=== PATIENT | female | born 1955 | race Two or more races ===

== ENCOUNTER 2019-04-11 17:48 | Inpatient (IN) | payer OTHER ==
[~2019-04-11] VITALS: Ht 154.9 cm; Wt 72.1 kg
[~2019-04-11 17:48] MED LIST: ABILIFY2 MG PO; ASPIR 8181 MG PO; ATORVASTATIN CA40 MG PO; BENTYL10 MG/ML; COLACE100 MG PO; GLIMEPIRIDE4 MG PO; HYOSCYAMINE0.125 M1; HYOSCYAMINE0.125 M1 SL; INTESTINEX680 MG PO; LISINOPRIL10 MG PO; METFORMIN HCL1000 M1; METFORMIN HYDRO25 GM; METOPROLOL SUCC25 MG PO; Mylicon 125MG PO; PANTOPRAZOLE SO40 MG; PAROXETINE HCL20 MG PO; PROTONIX20 MG; RESTORIL30 M1 PO; WELLBUTRIN SR150 MG PO; [UNRECOGNIZED DRUG - OTHER]
--- NOTE | 2019-04-11 17:52 | NUR ---
SE RECIBE PACIENTE EN AMBULANCIA REFIERE DOLOR ABDOMINAL SE MELY S/V YSE UBIAC EN AREA DE OBSERVACION
[2019-04-11] MEDS ORDERED: PROTONIX40 M1 (17:56)
[2019-04-11] MEDS ORDERED: PAXIL20 MG (17:56)
[2019-04-11] MEDS ORDERED: JANUMET XR 50-1 EAC1 (18:00)
[2019-04-11] MEDS ORDERED: ZESTRIL10 M1 (18:02)
--- NOTE | 2019-04-11 19:09 | NUR ---
SE ORIENTA AL PACIENTE SOBRE MUESTRAS DE MANDY, MEDICAMENTO, CANALIZACION, CONTRASTE Y CT. PACIENTE REFIERE ENTENDER. SE PROCEEDE A COLECTAR LAS MUESTRAS DE MANDY, BRINDAR EL MEDICAMENTO Y CANALIZAR AL PACIENTE UTILIZANDO MEDIDAS ASEPTICAS. MUESTRAS SON ENVIADAS AL LABORATORIO. SE HACE ENTREGA DEL CONTRASTE Y SE ORIENTA SOBRE EL MISMO. PACIENT EN ESPERA A TERMINAR EL CONTRASTE. SE VERIFICA AREA DE VENOPUNCION Y LA MISMA ESTA EMILY DE EDEMA Y ERITEMA.
--- NOTE | 2019-04-11 20:04 | NUR ---
SE LE ENTREGA ENVASE PARA COLECTAR MUESTRA DE ORINA AL PACIENTE.
--- NOTE | 2019-04-11 23:01 | NUR ---
SE RECIBE PTE ALERTA Y ORIENTADA X 3 EN CAMA CON BARANDAS ELEVADAS POR SEGURIDAD. BUEN PATRON RESPIRATORIO. IV'S 0.9NSS BAJANDO A KVO POR VENOPUNCION EN BRAZO JAIRO. PENDIENTE LECTURA DE CT. SE MANTIENE EN OBSERVACION POR CAMBIOS.
--- NOTE | 2019-04-12 07:10 | NUR ---
SE RECIBE PTE FEMENIA DE 63 YRS ALERTA CONCIENTE Y TRANQUILA EN CAMA CON BARABDAS ELEVADA. PTE REFIERE DOLOR . SE LE CARLIE S/V LA CUAL SE DOCUEMTA. SE MANTIENE PTE CONSULTADA CON EL , TOUS. SE MANTIENE BAJON OBSERVACION POR CAMBIOS.
--- NOTE | 2019-04-12 07:26 | NUR ---
SE LE ADMINSTRA MEDICAMENTO A PTE PARA EL DOLOR INTRAMUSCULAR.EN GLUTEO DERECHO. SE ORIENTA A PTE Y SE OBSERVA POR CAMBIOS.
[2019-04-15] MEDS ORDERED: PANTOPRAZOLE SO40 MG PO (12:34)
[2019-04-15] MEDS ORDERED: INTESTINEX680 M1 PO (12:34)
[2019-04-15] MEDS ORDERED: BACTRIM DS TAB1 EACH PO (12:35)
[2019-04-15] MEDS ORDERED: ULTRACET PO (12:41)
== END 2019-04-15 13:47 | disposition home or self-care (01) | DRG 395 ==
LOC: ER 17:48 → SURH 04-12 12:53 → SEC-K 04-12 12:53 → SURH 04-12 21:58
PROVIDERS: ADMIT Colon & Rectal Surgery
PROC: BW21Y0Z Computerized Tomography (CT Scan) of Abdomen and Pelvis using Other Contrast, Unenhanced and Enhanced (ICD-10-PCS; 2019-04-12)
PROC: BW4GZZZ Ultrasonography of Pelvic Region (ICD-10-PCS; principal; 2019-04-14)
DX: K94.09 Other complications of colostomy (principal); E11.9 Type 2 diabetes mellitus without complications; I10 Essential (primary) hypertension; F32.9 Major depressive disorder, single episode, unspecified; K58.9 Irritable bowel syndrome, unspecified; Y83.2 Surgical operation with anastomosis, bypass or graft as the cause of abnormal reaction of the patient, or of later complication, without mention of misadventure at the time of the procedure

== ENCOUNTER 2019-05-28 19:40 | Inpatient (IN) | payer OTHER ==
[~2019-05-28] VITALS: Ht 162.6 cm; Wt 80.7 kg
[~2019-05-28 19:40] MED LIST changes: +BACTRIM DS TAB1 EACH PO; +INTESTINEX680 M1 PO; +JANUMET XR 50-1 EAC1; +PANTOPRAZOLE SO40 MG PO; +PAXIL20 MG; +PROTONIX40 M1; +ULTRACET PO; +ZESTRIL10 M1
[2019-05-30] MEDS ORDERED: ATORVASTATIN CA40 MG PO (11:48)
[2019-05-30] MEDS ORDERED: ZESTRIL10 M1 PO (11:48)
[2019-05-30] MEDS ORDERED: PAXIL20 MG PO (11:49)
[2019-05-30] MEDS ORDERED: RESTORIL30 M1 PO (11:50)
== END 2019-05-30 13:49 | disposition home or self-care (01) | DRG 440 ==
LOC: ER 19:40 → SURH 05-29 11:56
PROVIDERS: ADMIT Internal Medicine
PROC: BW21ZZZ Computerized Tomography (CT Scan) of Abdomen and Pelvis (ICD-10-PCS; principal; 2019-05-29)
DX: K85.90 Acute pancreatitis without necrosis or infection, unspecified (principal); I10 Essential (primary) hypertension; E11.9 Type 2 diabetes mellitus without complications; N30.20 Other chronic cystitis without hematuria

== ENCOUNTER 2020-01-09 19:36 | Inpatient (IN) | payer OTHER ==
[~2020-01-09] VITALS: Ht 154.9 cm; Wt 72.6 kg
[~2020-01-09 19:36] MED LIST changes: +PAXIL20 MG PO; +ZESTRIL10 M1 PO
[2020-01-09] MEDS ORDERED: SIMVASTATIN5 MG (19:48)
--- NOTE | 2020-01-09 19:48 | NUR ---
SE RECIBE PTE ALERTA YORIENTADA X3 EN AMBULANCIA LA CUAL REFIERE VENIR POR DOLOR EN AREA DE COLOSTOMIA Y AREA ANAL. PTE DE DR. GRIFFIN. SE MIDEN S/V A PTE Y SE COLOCA EN ANA.
--- NOTE | 2020-01-09 20:31 | NUR ---
PT ALERTA Y ORIENTADA X3 ESFERAS SE LE ORIENTA SOBRE TX Y REFIERE ENTEDER. SE MELY MUESTRAS DE MANDY Y VENOPUNCION CON TECNCIAS ASEPTICAS. SE ADMINISTRAN IVLFUIDS ORDENADOS. PT TOLERA TX. PT MANEJADA POR MS X.ADDY.
--- NOTE | 2020-01-10 00:02 | NUR ---
PACIENTE ALERTA Y ORIENTADA EN DB BENNIE ESFERAS, PRESENTA BUEN PATRON RESPIRATORIO Y EMILY DE DOLOR. CANALIZADA EN BRAZO RT, PATENTE Y EMILY DE S/S DE FLEBITIS E INFILTRACION, RECIBIENDO 0.9% NSS A 150 ML/HR. PENDIENTE RE EVALUACION.
--- NOTE | 2020-01-10 07:08 | NUR ---
PET ALERTA Y ORIEJTADA POR BENNIE DIMENSIONES CON BUEN PATRON RESPIRATORIO. SE OBSERVA CANALIZACION PATENTE, EMILY DE EDEMA Y ERITEMA CON IV FLUIDS DE .9NSS @150ML/HR. SE ORIENTA SOBRE PROCEDIMIENTOS, SE MANTIENE EN ANA BAJA, BARANDAS ELEVADAS, FRENOS AJUSTADOS Y TIMBRE ACCSEIBLE.
--- NOTE | 2020-01-10 09:41 | NUR ---
PTE CULMINO TRATAMIENTO, EN ESPERA DE DR. GRIFFIN PARA EVALUACION.
[2020-01-12] MEDS ORDERED: HYOSCYAMINE0.125 M1 SL (15:41)
== END 2020-01-12 17:00 | disposition home or self-care (01) | DRG 392 ==
LOC: ER 19:36 → SURH 01-10 20:57
PROVIDERS: ADMIT Colon & Rectal Surgery; ATTEND Colon & Rectal Surgery
DX: R10.11 Right upper quadrant pain (principal); F32.9 Major depressive disorder, single episode, unspecified; E11.9 Type 2 diabetes mellitus without complications; I10 Essential (primary) hypertension; N28.1 Cyst of kidney, acquired; Z20.828 Contact with and (suspected) exposure to other viral communicable diseases; Z93.3 Colostomy status; N20.0 Calculus of kidney

== ENCOUNTER 2021-02-21 13:03 | Emergency (ER) | payer OTHER ==
[~2021-02-21] VITALS: Ht 154.9 cm; Wt 72.6 kg
[~2021-02-21 13:03] MED LIST changes: +SIMVASTATIN5 MG
[2021-02-21] MEDS ORDERED: LANTUS SOL100 UNIT/1 SQ (13:16)
[2021-02-21] MEDS ORDERED: HUMALOG100 UNIT/2 SQ (13:16)
[2021-02-21] MEDS ORDERED: TEMAZEPAM30 MG PO (13:17)
[2021-02-21] MEDS ORDERED: LEVSIN/SL0.125 MG PO (21:54)
[2021-02-21] MEDS ORDERED: INTESTINEX680 M1 PO (21:54)
[2021-02-21] MEDS ORDERED: DICLOFENAC POTA50 MG PO (21:54)
== END 2021-02-21 23:12 | disposition home or self-care (01) ==
LOC: ER 13:03
DX: K43.5 Parastomal hernia without obstruction or gangrene (principal); R10.31 Right lower quadrant pain; Z93.3 Colostomy status; Z03.818 Encounter for observation for suspected exposure to other biological agents ruled out

== ENCOUNTER 2021-04-03 16:01 | Emergency (ER) | payer OTHER ==
[~2021-04-03] VITALS: Ht 154.9 cm; Wt 72.6 kg
[~2021-04-03 16:01] MED LIST changes: +DICLOFENAC POTA50 MG PO; +HUMALOG100 UNIT/2 SQ; +LANTUS SOL100 UNIT/1 SQ; +LEVSIN/SL0.125 MG PO; +TEMAZEPAM30 MG PO
== END 2021-04-03 22:30 | disposition home or self-care (01) ==
LOC: ER 16:01
DX: R10.84 Generalized abdominal pain (principal); K43.5 Parastomal hernia without obstruction or gangrene; K76.0 Fatty (change of) liver, not elsewhere classified; Z88.0 Allergy status to penicillin; Z88.6 Allergy status to analgesic agent; Z88.1 Allergy status to other antibiotic agents

== ENCOUNTER 2021-10-08 12:06 | Emergency (ER) | payer OTHER ==
[~2021-10-08] VITALS: Ht 154.9 cm; Wt 72.6 kg
== END 2021-10-08 17:01 | disposition home or self-care (01) ==
LOC: ER 12:06
DX: R53.1 Weakness (principal); R42 Dizziness and giddiness; Z88.0 Allergy status to penicillin; Z88.2 Allergy status to sulfonamides; Z91.013 Allergy to seafood; Z88.6 Allergy status to analgesic agent; N39.0 Urinary tract infection, site not specified; E11.9 Type 2 diabetes mellitus without complications; Z79.4 Long term (current) use of insulin; Z86.16 Personal history of COVID-19

== ENCOUNTER 2022-02-27 14:22 | Inpatient (IN) | payer OTHER ==
[~2022-02-27] VITALS: Ht 154.9 cm; Wt 68.0 kg
[~2022-02-27 14:22] MED LIST changes: +CEFDINIR300 MG PO; +LEVSIN0.125 MG PO; +PEPCID AC20 MG PO
--- NOTE | 2022-02-27 14:41 | NUR ---
PTE LLEGA EN AMBULANCIA POR MAREOS ,DEBILOIDAD Y PROBLEMA CON LA COLOCTOMIA SE ACOMODA EN ANA CON BARANDAS ELEVADA.
--- NOTE | 2022-02-27 15:45 | NUR ---
PACIENTE EVALUADA POR EL QUIEN ORDENA TRATAMIENTO. RN TRIMBLE REALIZA MUESTRAS BAJO MEDIDAS ASEPTICAS Y ADMINISTRA MEDICAMENTOS BENJI ORDEN.
--- NOTE | 2022-02-28 03:13 | NUR ---
PACIENTE ALERTA Y ORIENTADA X3. SE ORIENTA SOBRE TX A RECIBIR Y REFIRRIO ENTENDER. SE ADMINISTRA MEDICAMENTO ORDENADO POR MD. IV FLUID PATENTE Y EMILY DE EDEMA Y ERITEMA. SE MANTIENE BAJO OBSERVACION POR CAMBIOS SIGNIFICATIVOS.
[2022-03-09] MEDS ORDERED: ELIQUIS5 MG (09:12)
== END 2022-03-10 14:02 | disposition home or self-care (01) | DRG 683 ==
LOC: ER 14:22 → SURG 02-28 13:53
PROVIDERS: ADMIT Internal Medicine; ATTEND Internal Medicine
PROC: BW21ZZZ Computerized Tomography (CT Scan) of Abdomen and Pelvis (ICD-10-PCS; principal; 2022-02-28)
PROC: BT4JZZZ Ultrasonography of Kidneys and Bladder (ICD-10-PCS; 2022-02-28)
PROC: 02HV33Z Insertion of Infusion Device into Superior Vena Cava, Percutaneous Approach (ICD-10-PCS; 2022-03-01)
PROC: 0DJD8ZZ Inspection of Lower Intestinal Tract, Via Natural or Artificial Opening Endoscopic (ICD-10-PCS; 2022-03-09)
DX: N17.8 Other acute kidney failure (principal); N39.0 Urinary tract infection, site not specified; I10 Essential (primary) hypertension; E11.9 Type 2 diabetes mellitus without complications; Z93.3 Colostomy status; Z79.4 Long term (current) use of insulin; N20.0 Calculus of kidney; N28.1 Cyst of kidney, acquired; K43.5 Parastomal hernia without obstruction or gangrene; Z20.822 Contact with and (suspected) exposure to COVID-19

== ENCOUNTER 2022-05-16 16:18 | Inpatient (IN) | payer OTHER ==
[~2022-05-16] VITALS: Ht 157.5 cm; Wt 71.7 kg
[~2022-05-16 16:18] MED LIST changes: +ELIQUIS5 MG
[2022-05-18] MEDS ORDERED: FENOFIBRATE160 MG (08:23)
[2022-05-18] MEDS ORDERED: [UNRECOGNIZED DRUG - OTHER] (08:23)
[2022-05-18] MEDS ORDERED: ROSUVASTATIN CA10 MG (08:24)
[2022-05-18] MEDS ORDERED: HYDROCHLOROTHIA25 MG (08:24)
[2022-05-18] MEDS ORDERED: LORATADINE10 MG (08:24)
[2022-05-20] MEDS ORDERED: CANASA1000 MG RECTAL (10:19)
== END 2022-05-20 11:49 | disposition home or self-care (01) | DRG 394 ==
LOC: ER 16:18 → SURG 05-17 14:32
PROVIDERS: ADMIT Colon & Rectal Surgery; ATTEND Colon & Rectal Surgery
DX: K62.7 Radiation proctitis (principal); K62.5 Hemorrhage of anus and rectum; E11.9 Type 2 diabetes mellitus without complications; I10 Essential (primary) hypertension; C54.1 Malignant neoplasm of endometrium; Z20.822 Contact with and (suspected) exposure to COVID-19; Z79.4 Long term (current) use of insulin

== ENCOUNTER 2022-12-16 19:00 | Emergency (ER) | payer OTHER ==
[~2022-12-16] VITALS: Ht 154.9 cm; Wt 63.5 kg
[~2022-12-16 19:00] MED LIST changes: +CANASA1000 MG RECTAL; +FENOFIBRATE160 MG; +HYDROCHLOROTHIA25 MG; +LORATADINE10 MG; +ROSUVASTATIN CA10 MG; +[UNRECOGNIZED DRUG - OTHER]
[2022-12-16] MEDS ORDERED: FEMARA2.5 MG PO (19:20)
[2022-12-16] MEDS ORDERED: PLAVIX75 MG PO (19:21)
[2022-12-16] MEDS ORDERED: ABILIFY2 MG PO (19:22)
[2022-12-16] MEDS ORDERED: PAXIL20 MG PO (19:23)
[2022-12-16 19:59] LABS: URINE APPEARANCE Turbid; URINE BILIRRUBIN Negative (NEGATIVE); URINE BLOOD Large; URINE COLOR Yellow; URINE GLUCOSE Negative (NEGATIVE); URINE LEUKOCYTE Large; URINE NITRATE Positive
[2022-12-16 20:03] LABS: URINE EPITHELIAL CELLS 39.4 uL (0.0-38.8); URINE RBC 4983.8 uL (0.0-20.8)
[2022-12-16 20:26] LABS: URINE PROTEIN 300 (NEGATIVE)
[2022-12-16 20:27] LABS: URINE BACTERIA > 9821.5 uL (0.0-1933); URINE WBC > 5548.3 uL (0.0-23.2)
[2022-12-16 21:21] LABS: CALCIUM 8.9 mg/dL (8.5-10.1); CREATININE SERUM 1.73 mg/dL (0.55-1.02); GFR 29.2; POTASSIUM 4.37 mEq/L (3.5-5.1)
[2022-12-17 00:24] LABS: ABG PH 7.356 (7.35-7.45); ABG PO2 94.9 mmHg (80-100); ABG pCO2 33.4 mmHg (35-45); BASE EXCESS -6.1 mmol/l; BICARBONATE 18.3 mmol/l (23-25); SaO2 96.8 %; Tco2 19.3 mmol/l
[2022-12-17 00:35] LABS: HEMATOCRIT 32.3 % (36.0-45.00); HEMOGLOBIN 10.5 g/dL (12.0-15.00); MEAN CORPUSCULAR HEMOGLOBIN 26.8 pg (27.00-32.0); MEAN CORPUSCULAR HGB CONC 32.7 g/dl (32.0-36.0); PLATELET COUNT 197 K/uL (150-450); RED BLOOD COUNT 3.93 M/uL (4.00-6.00); RED CELL DISTRIBUTION WIDTH 16.9 % (11.5-14.5)
[2022-12-17 01:42] LABS: INR 1.03; PARTIAL THROMBOPLASTIN TIME 28.9 SECONDS (22.0-34.0); PROTHROMBIN TIME 10.8 SECONDS (9.0-11.5)
[2022-12-17 06:51] LABS: allen test SATISFACTORY; o2 21 %; puncture site RADIAL LEFT
== END 2022-12-17 09:32 | disposition home or self-care (01) ==
LOC: ER 19:00
PROVIDERS: General Practice
DX: R30.0 Dysuria (principal); N39.0 Urinary tract infection, site not specified; E11.9 Type 2 diabetes mellitus without complications; Z79.4 Long term (current) use of insulin; I10 Essential (primary) hypertension; Z88.6 Allergy status to analgesic agent; Z88.0 Allergy status to penicillin; Z88.8 Allergy status to other drugs, medicaments and biological substances; Z85.42 Personal history of malignant neoplasm of other parts of uterus; Z85.3 Personal history of malignant neoplasm of breast; Z93.3 Colostomy status
CPT/HCPCS: 36415; 74176; 82803; 96365; 96366; 96372; 99285; J2180; J2405; J3490

== ENCOUNTER 2022-12-28 11:53 | Outpatient (CLI) | payer OTHER ==
[~2022-12-28 11:53] MED LIST changes: +FEMARA2.5 MG PO; +PLAVIX75 MG PO
== END 2022-12-28 12:01 | disposition home or self-care (01) ==
LOC: MAMO-SONO 11:53
PROVIDERS: ATTEND Surgery
DX: C50.512 Malignant neoplasm of lower-outer quadrant of left female breast (principal); N60.11 Diffuse cystic mastopathy of right breast; N60.12 Diffuse cystic mastopathy of left breast

== ENCOUNTER 2023-01-06 07:43 | Outpatient (CLI) | payer OTHER | END 2023-01-06 07:45 | disposition home or self-care (01) | LOC: NUCLEAR 07:43 | PROVIDERS: ATTEND Surgery | DX: C50.512 Malignant neoplasm of lower-outer quadrant of left female breast (principal) | CPT/HCPCS: 78815; A9552 ==

== ENCOUNTER 2024-04-20 21:03 | Emergency (ER) | payer OTHER ==
[~2024-04-20] VITALS: Ht 157.5 cm; Wt 63.5 kg
[~2024-04-20 21:03] MED LIST changes: +JANUMET 50-1,01 EACH; +JANUMET 50-1,01 EACH PO; +LETROZOLE2.5 MG PO; +LISINOPRIL20 MG; +LOVAZA1 GM; +MUCINEX DM ER1 EACH PO; +NABUMETONE750 MG PO; +NITROFURANTOIN100 MG PO; +ORPHENADRINE C100 MG PO; +PAROXETINE HCL20 MG; +PROTONIX40 MG; +RESTORIL30 MG PO; +SKELAXIN800 MG PO; +VITAMIN D-32000 UNIT; +ZOCOR40 MG; +ZYRTEC10 MG PO
[2024-04-20] MEDS ORDERED: GABAPENTIN300 M2 PO (21:11)
[2024-04-20] MEDS ORDERED: FAMOTIDINE/PF 20 MG in 0.9 % SODIUM CHLORIDE 8 ML IV PUSH STA (22:12)
[2024-04-20] MEDS ORDERED: 0.9 % SODIUM CHLORIDE 1,000 ML IV SCH (22:15)
[2024-04-20] MEDS ORDERED: HYOSCYAMINE SULFATE 0.125 MG TAB.SUBL SL ONE (22:15)
[2024-04-20] MEDS ORDERED: FAMOTIDINE/PF 20 MG/2 ML VIAL ONE (22:23)
[2024-04-20] MEDS ORDERED: HYOSCYAMINE SULFATE 0.125 MG TAB.SUBL ONE (22:23)
[2024-04-20 23:11] LABS: HEMATOCRIT 33.9 % (36.0-45.00); HEMOGLOBIN 11.6 g/dL (12.0-15.00); MEAN CELL VOLUME 82.7 fL (80.00-100.00); MEAN CORPUSCULAR HEMOGLOBIN 28.3 pg (27.00-32.0); MEAN CORPUSCULAR HGB CONC 34.2 g/dl (32.0-36.0); PLATELET COUNT 210 K/uL (150-450); RED CELL DISTRIBUTION WIDTH 15.6 % (11.5-14.5)
[2024-04-20 23:39] LABS: ALBUMIN 3.5 gm/dL (3.4-5.0); BILIRUBIN TOTAL 0.86 mg/dL (0.3-1.2); CALCIUM 8.7 mg/dL (8.5-10.1); CREATININE SERUM 1.19 mg/dL (0.55-1.02); GFR 44.84; GLOBULINA 4.1 G/DL (2.4-3.5); POTASSIUM 3.55 mEq/L (3.5-5.1); TOTAL PROTEIN 7.6 gm/dL (6.4-8.2)
[2024-04-21 00:33] LABS: URINE APPEARANCE Clear; URINE BILIRRUBIN Negative (NEGATIVE); URINE BLOOD Negative; URINE COLOR Yellow; URINE GLUCOSE Negative (NEGATIVE); URINE KETONE Negative (NEGATIVE); URINE LEUKOCYTE Trace; URINE NITRATE Negative; URINE PROTEIN 30 (NEGATIVE); URINE UROBILINOGEN 0.2 E.U./dl
[2024-04-21 00:48] LABS: URINE BACTERIA 47.7 uL (0.0-1933); URINE CAST 0.58 uL (0.0-1.40); URINE EPITHELIAL CELLS 6.9 uL (0.0-38.8); URINE RBC 2.2 uL (0.0-20.8); URINE WBC 61.3 uL (0.0-23.2)
[2024-04-21] MEDS ORDERED: PROMETHAZINE HCL 25 MG/ML AMPUL IM STA (03:04)
[2024-04-21] MEDS ORDERED: MEPERIDINE HCL/PF 50 MG/ML VIAL IM STA (03:04)
[2024-04-21] MEDS ORDERED: PROMETHAZINE HCL 25 MG/ML AMPUL ONE (03:14)
== END 2024-04-21 08:40 | disposition home or self-care (01) ==
LOC: ER 21:03
PROVIDERS: General Practice
DX: R14.3 Flatulence (principal); R14.1 Gas pain; R14.2 Eructation; R10.13 Epigastric pain; R19.7 Diarrhea, unspecified; R10.9 Unspecified abdominal pain; I10 Essential (primary) hypertension; E11.9 Type 2 diabetes mellitus without complications; Z79.84 Long term (current) use of oral hypoglycemic drugs; Z91.013 Allergy to seafood; Z91.041 Radiographic dye allergy status
CPT/HCPCS: 36415; 74176; 96365; 96366; 96372; 99284; J3490 ×3; J7030